=== PATIENT | female | born 1975 | race Caucasian/White ===

== ENCOUNTER → 2020-12-25 | Outpatient (CLI) | payer OTHER ==
--- NOTE | 2020-12-25 12:29 | KCIC ---
Examination: MRI of the left knee without contrast HISTORY: History of left knee pain COMPARISON: None available Technique: Multiplanar, multisequence MR imaging of the left knee was performed FINDINGS: The anterior cruciate ligament, posterior cruciate ligament appears intact. There is mild increased T 2 signal identified in the posterior to the medial meniscus. Lateral meniscus appears intact. The lat eral collateral ligament appears intact. Lateral collateral ligamentous complex including the fibular collateral ligament, biceps femoris tendon, popliteus tendon appears intact. Small knee joint effusion. The extensor mechanism appears intact. The medial, lateral retinaculum appears intact. There is deep fissuring of cartilage identified in the patellofemoral compartment. There is mild supe rficial fraying of cartilage in lateral, medial compartments. There is mild increased T2 signal ident ified in the posterior medial tibial plateau. Mild soft tissue edema identified anterior to the infra patellar tendon. IMPRESSION: 1. Mild increased T2 signal identified in the posterior to the medial meniscus, questionable subtle small meniscal tear. 2. Grade II chondromalacia patellofemoral compartment. Grade I chondromalacia lateral, medial compar tments. 3. Small knee joint effusion. Electronically signed by: Nicholas Medina MD (12/25/2020 12:27 PM) [id number]
== END ==
LOC: KCIC MRI 10:01
PROVIDERS: ATTEND Physician Assistant
DX: M25.462 Effusion, left knee (principal); M94.262 Chondromalacia, left knee; M17.12 Unilateral primary osteoarthritis, left knee; M25.362 Other instability, left knee; M79.89 Other specified soft tissue disorders
CPT/HCPCS: 73721